=== PATIENT | male | born 1965 | race Caucasian/White ===

== ENCOUNTER 2024-12-30 08:00 | Outpatient (CLI) | payer SELFPAY ==
--- NOTE | 2024-12-30 08:00 | RT.EKG_ITS ---
APPROVED REPORT Exam: Resting ECG Reason for Exam: cardiac evaluation Patient Location: O HR:59 bpm ECG Measurements Heart Rate 59 AXIS UT 164 P 1 QRSd 86 QRS 0 QT 418 T 42 QTc 414 Conclusion Sinus rhythm...normal P axis, V-rate 50- 99 Normal Electrocardiogram
== END 2024-12-30 08:01 | disposition home or self-care (01) ==
LOC: DI.CARD 08:01
PROVIDERS: PCP Family Medicine; Visit Provider Registered Nurse
DX: R07.9 Chest pain, unspecified (principal); R00.0 Tachycardia, unspecified
CPT/HCPCS: 93010

== ENCOUNTER 2025-02-20 01:44 | Outpatient (CLI) | payer OTHER, SELFPAY ==
--- NOTE | 2025-02-20 06:15 | DI.NM_ITS ---
APPROVED REPORT Exam: Pharmacologic Patient Location: Out-Patient Room/Bed: Stress Nurse: Nallely Recinos RN Ordering Provider:DANIELLE GUY, Contact Number: BMI: 34.43 Baseline Rhythm: Sinus Bradycardia Indications: Chest pain, dyspnea, fatigue Medical History Medical History: chest pain, tachycardia, HTN, HLD, BPH, GERD, asthma, anxiety Cardiac Medications: albuterol sulfate, diltiazem, epinephrine injection kit, fenofibrate, omeprazole, rosuvastatin, tadalafil, zolpidem Allergies: honey bee, penicillins Cardiac Risk Factors: family hx, HTN, asthma, HLD, Previous Cardiac Procedures: none Pretest Chest Pain Characteristics: No chest pain Exercise History: Physically active Physical Disabilities: back injury Lung Sounds: Clear to auscultation Heart Sounds: Regular Stress Test Details Test: Pharmacologic stress was paired with low level exercise. Reason for pharmacologic stress test: physical limitation. Nuclear Acquisition: Rest Tc-99m/Stress Tc-99m 1 day Rest Isotope: Tc-99m Sestamibi. Dose: 10.3 Date: 02/20/2025 Injection Time: 0820 Stress Isotope: Tc-99m Sestamibi. Dose: 32.7 Date: 02/20/2025 Injection Time: 1015 HR Resting HR Supine: 59 bpm Max Heart Rate (APMHR): 161 bpm Resting HR Standin bpm Target HR (85% APMHR): 137 bpm Max HR Achieved: 99 bpm % of APMHR: 61 Recovery HR: 72 bpm BP Resting BP Supine: 142/92 mmHg Resting BP Standin/90 mmHg Max BP: 162/90 mmHg Recovery BP: 130/80 mmHg ECG Resting ECG: Sinus Bradycardia Ectopy: none Stress ECG: Sinus Rhythm ST Change: Nondiagnostic low heart rate Arrhythmia: occasional PACs Recovery ECG: Sinus Rhythm Recovery ST Change: Nondiagnostic low heart rate Recovery Arrhythmia: rare PAC Clinical Stress Symptoms: none Angina Score: None Rate Pressure Product: [id number] Stress ECG Conclusion 1. Resting electrocardiogram showed poor R wave progression 2. Patient underwent testing using pharmacologic stress with regadenoson 3. Peak heart rate achieved was 61% of maximal predicted for age 4. The electrocardiographic portion of the test was nondiagnostic 5. See MPI report Stress Test Summary STAGE HR BP SpO2 Symptoms NOTES Supine 59 142/92 96 Standing 62 142/92 1 min post Lexiscan injection 61 144/90 94 3 min post Lexiscan injection 94 162/90 98 6 min post Lexiscan injection 72 130/80 93 Patient did a Sophie protocol secondary to a back injury. Patient ambulated out with no complaints/symptoms. MPI Conclusion Myocardial perfusion is normal. There is no ischemia or evidence of prior infarction Ejection fraction is 51% with normal wall motion
--- NOTE | 2025-02-20 07:30 | DI.US_ITS ---
APPROVED REPORT EXAM: Comprehensive 2D, Doppler, and color-flow Echocardiogram Patient Location: Out-Patient Supplier Specialist: Regla Antony RDCS (AE) Indications: Dyspnea, fatigue, chest pain Other Information Study Quality: Adequate Conclusion Normal left ventricular wall thickness and chamber size. Ejection fraction is 62%. Wall motion is normal Normal right ventricular size and function Both atria are normal in size There is no structural or hemodynamically significant valvular disease Estimated right ventricular systolic pressure is 24 mmHg Wall motion Left Ventricle The left ventricle is normal size. The left ventricular systolic function is normal. The left ventricular ejection fraction is within the normal range. There is normal left ventricular wall thickness. There is normal LV segmental wall motion. There is no ventricular septal defect visualized. LVEF is 62%. Right Ventricle The right ventricle is normal size. The right ventricular systolic function is normal. Atria The left atrium size is normal. The right atrium size is normal. The interatrial septum is intact with no evidence for an atrial septal defect. Aortic Valve The aortic valve is normal in structure. Aortic valve is trileaflet. There is no aortic valvular stenosis. No aortic regurgitation is present. Mitral Valve The mitral valve is normal in structure. No evidence of mitral valve stenosis. Trace mitral regurgitation. Tricuspid Valve The tricuspid valve is normal in structure. There is no tricuspid valve stenosis. Trace tricuspid regurgitation. The RVSP is 23.6 mmHg. Pulmonic Valve The pulmonary valve is normal in structure. There is no pulmonic valvular stenosis. Trace pulmonic regurgitation. Great Vessels The aortic root is normal in size. The ascending aorta is normal in size. Aortic arch is normal in caliber. IVC is normal in size and collapses >50% with inspiration. Pericardium There is no pericardial effusion. 2D Dimensions IVSD d PLAX 1.02 cm M: 0.6-1.2 Ao Root d 3.52 cm M: 3.1 - 3.7 LVPW d PLAX 1.01 cm M: 0.6 - 1.2 Ao Asc Diam d 3.38 cm M: 2.6 - 3.4 LVID d PLAX 5.00 cm M: 4.2 - 5.8 LVDs 3.34 cm M: 2.5 - 4.0 LV EF Teichholz 61.6 % FS 33.25 % LV EDV (Teich) 118.3 mL LV ESV (Teich) 45.4 mL M-Mode TAPSE 2.79 cm (M/F) >1.7 Auto EF LV EDV A4C 140.8 mL LV EDV A2C 154.4 mL LV EDV BP 148.6 mL LV ESV A4C 58.0 mL LV ESV A2C 66.6 mL LV ESV BP 62.3 mL LVEF(%) A4C 58.8 % LVEF(%) A2C 56.9 % LVEF(%) BP 58.1 % LV SV A4C 82.8 ml LV SV A2C 87.8 ml LV SV BP 86.3 ml LV CO A4C 5.2 L/min LV CO A2C 5.1 L/min LV CO BP 5.1 L/min HR A4C 62.40 BPM HR A2C 57.60 BPM LV EDV Index (BP) LA Volume LA Length A4C 4.8 cm LA Length A2C 5.4 cm LA Area A4C s 15.96 cm2 LA Area A2C s 23.13 cm2 LA Vol A4C A-L 44.59 mL LA Vol A2C A-L 83.64 mL LA Vol Biplane A-L 64.6 mL LA Vol/BSA A4C A-L LA Vol/BSA A2C A-L LA Vol/BSA BP A-L 28.7 mL/m2 LA Vol A4C MOD 42.3 mL LA Vol A2C MOD 77.3 mL LA Vol BP MOD 60.4 mL RA Volume RA Area A4C 17.9 cm2 RA ESV A4C (A-L) 53.3mL RA Vol/BSA A4C A-L RA Length A4C 5.1 cm RA ESV A4C (MOD) 50.1mL LV Diastology MV E' medial 0.077 (>0.07 m/s) MV E Vmax 0.84 (0.4-1.3 m/s) MV E/E' MED 11.00 (<14) MV A Vmax 0.85 (0.4-1.3 m/s) MV E' lateral 0.135 (>0.1 m/s) E/A Ratio 1.0 MV E/E' LAT 6.26 (<14) MV E' Average 0.106 m/s MV E/E'(average) 7.98 Aortic Valve AoV Vmax 1.56 m/s LVOT Vmax 1.27 m/s AoV Peak Grad 9.7 mmHg LVOT Peak Grad 6.4 mmHg AoV Area (Vmax) 2.48 cm2 LVOT VTI 0.286 m AoV VTI 0.360 m LVOT Mean Grad 3.3 mmHg AoV Mean Arley. 1.09 m/s LVOT SV 87.16 mL AoV Mean Grad 5.4 mmHg LVOT Diam s 1.95 cm AoV Area (VTI) 2.42 cm2 AV Regurg Peak Gr. 9.71 mmHg Velocity Ratio 0.81 Mitral Valve MV DT 293 (160-240 msec) MV Vmax TIPS 0.86 m/s MV Mean Grad 1.0 (<2mmHg) MV VTI 0.328 m Pulmonary Valve PV Vmax 1.05 (0.5-1.5 m/s) RVOT Vmax 0.80 m/s PV Peak Grad 4.4 mmHg RVOT Peak Gr. 2.6 mmHg PV Mean Arley 0.73 m/s RVOT VTI 0.179 m PV Mean Grad 2.5 mmHg RVOT Mean Gr. 1.3 mmHg Tricuspid Valve RA Pressure 3.00 mmHg TR Vmax 2.27 m/s TV S' 0.16 m/s TR Peak Grad 20.5 mmHg RVSP (TR) 23.6 mmHg
[2025-02-20] MEDS: Regadenoson 0.4 MG/5 ML SYR IVP (13:25)
== END 2025-02-20 02:04 ==
PROVIDERS: PCP Family Medicine; Visit Provider Internal Medicine Cardiovascular Disease
DX: R07.9 Chest pain, unspecified (principal); R53.83 Other fatigue
CPT/HCPCS: 78452; 93017; 93306; J2785